=== PATIENT | female | born 1975 | race African-American/Black ===

== ENCOUNTER 2017-11-28 15:02 | Emergency (ER) | payer OTHER ==
[2017-11-28 15:26] VITALS: BP 136/72; PULSE 82; TEMP 98.7; BMI 28.1
[2017-11-28] MEDS ORDERED: KETOROLAC TROMETHAMINE 60 MG/2 ML VIAL IM ONE (15:36)
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
== END 2017-11-28 15:47 | disposition home or self-care (01) ==
LOC: JERFT 15:02
PROC: 3E0233Z Introduction of Anti-inflammatory into Muscle, Percutaneous Approach (ICD-10-PCS; principal; 2017-11-28)
DX: S29.012A Strain of muscle and tendon of back wall of thorax, initial encounter (principal); S50.12XA Contusion of left forearm, initial encounter; W24.0XXA Contact with lifting devices, not elsewhere classified, initial encounter; Y93.F2 Activity, caregiving, lifting; Y92.098 Other place in other non-institutional residence as the place of occurrence of the external cause; Y99.0 Civilian activity done for income or pay
CPT/HCPCS: 99281-25

== ENCOUNTER 2018-03-15 13:58 | Emergency (ER) | payer OTHER ==
[2018-03-15 14:12] VITALS: BP 116/71; PULSE 92; TEMP 99.8; BMI 29.0
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
[2018-03-15] MEDS ORDERED: IBUPROFEN 600 MG TABLET (FP) PO ONE ×2 (14:54→14:58)
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
== END 2018-03-15 15:49 | disposition home or self-care (01) ==
LOC: JERFT 13:58
DX: M54.5 Low back pain (principal); S46.912A Strain of unspecified muscle, fascia and tendon at shoulder and upper arm level, left arm, initial encounter; S13.4XXA Sprain of ligaments of cervical spine, initial encounter; V43.52XA Car driver injured in collision with other type car in traffic accident, initial encounter; Y93.89 Activity, other specified; Y92.410 Unspecified street and highway as the place of occurrence of the external cause
CPT/HCPCS: 72050-TC-FY; 72100-TC-FY; 73030-TC-LT-FY; 99281-25

== ENCOUNTER 2021-01-24 18:58 | Emergency (ER) | payer OTHER ==
[2021-01-24 19:13] VITALS: BP 138/90; PULSE 90; TEMP 99; BMI 29.0
[2021-01-24] MEDS ORDERED: METHOCARBAMOL 500 MG TABLET PO ONE (21:14)
[2021-01-24] MEDS ORDERED: METHOCARBAMOL 500 MG TABLET ONE (21:34)
== END 2021-01-25 01:11 | disposition home or self-care (01) ==
LOC: JER 18:58
DX: M54.2 Cervicalgia (principal); S46.819A Strain of other muscles, fascia and tendons at shoulder and upper arm level, unspecified arm, initial encounter; S06.0X0A Concussion without loss of consciousness, initial encounter
CPT/HCPCS: 70450-TC; 72125-TC; 99284-25

== ENCOUNTER 2022-11-12 16:19 | Emergency (ER) | payer BC ==
[2022-11-12 16:34] VITALS: BP 127/78; PULSE 76; RESP 18; TEMP 98; BMI 30.7
[2022-11-12] MEDS ORDERED: KETOROLAC TROMETHAMINE 15 MG/ML VIAL IVPUSH ONE (18:18)
[2022-11-12] MEDS ORDERED: ACETAMINOPHEN 1000 MG/100 ML BAG IVPB ONE (18:18)
[2022-11-12] MEDS ORDERED: MAG HYDROX/AL HYDROX/SIMETH 30 ML UNIT-DOSE CUP PO ONE (18:18)
[2022-11-12] MEDS ORDERED: KETOROLAC TROMETHAMINE 15 MG/ML VIAL ONE (18:23)
[2022-11-12] MEDS ORDERED: MAG HYDROX/AL HYDROX/SIMETH 30 ML UNIT-DOSE CUP ONE (18:23)
[2022-11-12] MEDS ORDERED: ACETAMINOPHEN INJECTION 100 ML IVPB ONE (18:23)
[2022-11-12 18:57] LABS: BASO % 0.8 % (0-2.0); EOS % 2.9 % (0-4.5); HEMATOCRIT 38.3 % (32.4-45.2); HEMOGLOBIN 12.3 GM/dL (10.7-15.3); LYMPH % 28.4 % (8-40); MCH 25.5 pg (25.7-33.7); MCHC 32.3 g/dl (32.0-36.0); MEAN CELL VOLUME 78.9 fl (80-96); MEAN PLT VOLUME 9.8 fl (7.5-11.1); MONO % 7.3 % (3.8-10.2); NEUT % 60.6 % (42.8-82.8); PLATELET COUNT 309 10^3/uL (134-434); RBC 4.85 M/mm3 (3.60-5.2); RDW 15.2 % (11.6-15.6); WHITE BLOOD COUNT 14.2 K/mm3 (4.0-10.0)
[2022-11-12 19:04] LABS: ALBUMIN 3.6 g/dl (3.4-5.0); BLOOD UREA NITROGEN 14.9 mg/dL (7-18); CALCIUM 9.3 mg/dL (8.5-10.1); MAGNESIUM 2.3 mg/dL (1.8-2.4)
[2022-11-12 19:07] LABS: CREATININE 0.6 mg/dL (0.55-1.3)
[2022-11-12 19:09] LABS: BILIRUBIN,TOTAL 0.2 mg/dL (0.2-1); TOT PROT 7.5 g/dl (6.4-8.2)
== END 2022-11-12 20:31 | disposition home or self-care (01) ==
LOC: JER 16:19
PROC: 3E033NZ Introduction of Analgesics, Hypnotics, Sedatives into Peripheral Vein, Percutaneous Approach (ICD-10-PCS; principal; 2022-11-12)
PROC: 3E0333Z Introduction of Anti-inflammatory into Peripheral Vein, Percutaneous Approach (ICD-10-PCS; 2022-11-12)
DX: R07.9 Chest pain, unspecified (principal); R06.02 Shortness of breath; Z20.822 Contact with and (suspected) exposure to COVID-19
CPT/HCPCS: 0241U-QW; 36415; 71045-TC-FY; 80053; 83735; 84484; 84703; 85025; 93005; 93010; 99285-25